=== PATIENT | male | born 1955 | race Caucasian/White ===

== ENCOUNTER → 2019-12-05 | Outpatient (CLI) | payer BC | LOC: GMAM 17:26 | PROVIDERS: ATTEND Family Medicine | DX: R53.83 Other fatigue (principal); E78.2 Mixed hyperlipidemia; I10 Essential (primary) hypertension ==

== ENCOUNTER → 2020-04-23 | Outpatient (CLI) | payer BC ==
--- NOTE | 2020-04-23 13:58 | RAD ---
EXAM DESCRIPTION: Chest,2 Views CLINICAL HISTORY: URI COMPARISON: None available FINDINGS: The cardiac silhouette is slightly enlarged. There is no airspace consolidation or pleural effusion. The central bronchovascular markings are indistinct. There is no pneumothorax or acute fracture. IMPRESSION: Cardiomegaly and mild central pulmonary vascular congestion. Viral or other atypical infection could have a similar appearance. Electronically signed by: Carmelo Yates MD 04/23/2020 1:56 PM [employer]
== END ==
LOC: RAD 10:15
PROVIDERS: ATTEND Physician Assistant
DX: J06.9 Acute upper respiratory infection, unspecified (principal); I51.7 Cardiomegaly

== ENCOUNTER → 2020-04-30 | Outpatient (CLI) | payer MEDICARE, BC | LOC: ECHO 10:03 | PROVIDERS: ATTEND Family Medicine | DX: R06.00 Dyspnea, unspecified (principal); I51.7 Cardiomegaly; I50.30 Unspecified diastolic (congestive) heart failure; I34.0 Nonrheumatic mitral (valve) insufficiency; I31.3 Pericardial effusion (noninflammatory) ==